=== PATIENT | female | born 1975 | race Caucasian/White ===

== ENCOUNTER 2022-06-30 04:55 | Emergency (ER) | payer OTHER ==
[~2022-06-30] VITALS: Ht 162.6 cm; Wt 95.3 kg
[2022-06-30 05:02] VITALS: BP 151/100
[2022-06-30] MEDS ORDERED: KETOROLAC 60 MG/2 ML VIAL IM ONE (05:10)
--- NOTE | 2022-06-30 05:12 | NUR ---
PT AMB TO ER BED 03.
--- NOTE | 2022-06-30 05:16 | NUR ---
UA SENT TO LAB
[2022-06-30 05:29] LABS: APPEARANCE,URINE CLEAR (CLEAR); BILIRUBIN,URINE NEGATIVE (NEGATIVE); BLOOD, URINE 3+ (NEGATIVE); COLOR,URINE YELLOW (YELLOW); LEUKOCYTE ESTERASE ,URINE 2+ (NEGATIVE); NITRITE, URINE POSITIVE (NEGATIVE); UGLUCOSE NEGATIVE (NEGATIVE)
[2022-06-30] MEDS ORDERED: CIPR500T4 PO (05:54)
[2022-06-30] MEDS ORDERED: PHEN-1877 PO (05:54)
[2022-06-30] MEDS ORDERED: IBUP-2213 PO (05:54)
[2022-06-30 06:04] VITALS: BP 151/100
--- NOTE | 2022-06-30 06:04 | NUR ---
Patient discharged with v/s stable. Written and verbal after care instructions given and explained. Patient alert, oriented and verbalized understanding of instructions. Ambulatory with steady gait. All questions addressed prior to discharge. ID band removed. Patient advised to follow up with PMD. Rx of CIPROFLOXACIN, IBUPROFEN, AND PYRIDIUM given. Patient educated on indication of medication including possible reaction and side effects. Opportunity to ask questions provided and answered.
== END 2022-06-30 06:04 | disposition home or self-care (01) ==
LOC: MED 04:55
DX: N39.0 Urinary tract infection, site not specified (principal); F17.200 Nicotine dependence, unspecified, uncomplicated; Z90.49 Acquired absence of other specified parts of digestive tract; Z90.89 Acquired absence of other organs
CPT/HCPCS: 81001; 81025; 87086; 96372; 99283; J1885